=== PATIENT | male | born 1960 | race Hispanic/Latino ===

== ENCOUNTER 2022-11-21 10:04 | Emergency (ER) | payer SELFPAY ==
[2022-11-21] VITALS (9 sets, daily range): BP systolic 112–127; BP diastolic 66–75
[~2022-11-21] VITALS: Ht 165.1 cm; Wt 87.8 kg
[~2022-11-21 10:04] MED LIST: NO HOME MEDS
[2022-11-21] MEDS ORDERED: NAPROXEN500 MG PO (11:48)
[2022-11-21] MEDS ORDERED: KEFLEX500 MG PO (11:48)
== END 2022-11-21 12:11 | disposition home or self-care (01) | DRG 605 ==
LOC: ED 10:04
DX: S61.431A Puncture wound without foreign body of right hand, initial encounter (principal); W29.4XXA Contact with nail gun, initial encounter; Y93.89 Activity, other specified; Y99.0 Civilian activity done for income or pay